=== PATIENT | female | born 1960 | race Two or more races ===

== ENCOUNTER 2016-02-13 18:50 | Emergency (ER) | payer MEDICARE, MEDICAID ==
[2016-02-13] MEDS ORDERED: KETOROLAC TROMETHAMINE 30 MG/ML 1 ML VIAL ONE (19:25)
[2016-02-13] MEDS ORDERED: ONDANSETRON 4 MG/2ML 2 ML VIAL ONE (19:25)
[2016-02-13 19:27] LABS: ABSOLUTE NEUTROPHIL COUNT 3.3 K/mm3 (1.8-7.7); BASO % 0.6 % (0.2-1.0); EOS # 0.2 (0.0-0.5); EOS % 3.6 % (0.9-2.9); HEMATOCRIT 37.4 % (37.0-47.0); IMM NEUT% 0.2 % (0-1); LYMPH # 0.8 (1.0-4.8); LYMPH % 16.5 % (15-45); MEAN CELL VOLUME 91.7 fl (81.0-99.0); MEAN CORPUSCULAR HEMOGLOBIN 29.4 pg (27.0-31.0); MEAN CORPUSCULAR HGB CONC 32.1 g/dl (33.0-37.0); MEAN PLATELET VOLUME 10.6 fl (7.4-10.4); MONO # 0.6 (0.0-0.8); MONO % 12.7 % (4-12); NEUT % 66.4 % (43-75); PLATELET COUNT 97 K/mm3 (130-400); RED CELL DISTRIBUTION WIDTH 15.2 % (11.5-14.5)
[2016-02-13 19:39] LABS: ALB/GLOB RATIO 1.3 (>1.0); ALBUMIN 4.4 gm/dL (3.5-5.7); CALCIUM 9.5 mg/dL (8.6-10.3)
--- NOTE | 2016-02-13 20:51 | RAD ---
02/13/2016 8:45 PM CHEST - 2 VIEWS History: Chest pain for 2 days Comparison: 07/10/2015 Findings: Two views of the chest are obtained. The lungs are clear with out effusion or pneumothorax. The cardiomediastinal silhouette mildly enlarged but stable. The osseous structures are intact.. Embolization coils are noted within the abdomen, left of midline. IMPRESSION: No acute intrathoracic process.
== END 2016-02-13 21:24 | disposition home or self-care (01) ==
LOC: ED 18:50
DX: R07.9 Chest pain, unspecified (principal); R50.9 Fever, unspecified; I12.9 Hypertensive chronic kidney disease with stage 1 through stage 4 chronic kidney disease, or unspecified chronic kidney disease; N18.9 Chronic kidney disease, unspecified; Z99.2 Dependence on renal dialysis
CPT/HCPCS: 85025; 80053; 84484; 71020; 96375; 99284 ×2; 96374; J1885; J2405